=== PATIENT | male | born 1980 | race Caucasian/White ===

== ENCOUNTER 2017-02-15 08:21 | Emergency (ER) | payer SELFPAY ==
[2017-02-15 08:35] VITALS: BP 157/84; PULSE 82; TEMP 97.5; BMI 30.7
--- NOTE | 2017-02-15 09:06 | PDOC ---
History of Present Illness - General Chief Complaint: Injury Stated Complaint: HEAD INJURY Time Seen by Provider: 02/15/17 08:48 History Source: Patient Exam Limitations: No Limitations - History of Present Illness Initial Comments: 02/15/17 09:06 36-year-old male presents to the ED with complaints of head injury while at work today. 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 patient states had no LOC but states took him a few seconds to realize what happened followed by some blurriness to the right eye that disappeared within seconds. Patient currently has no complaints and has no medical history nor is he on anticoagulation therapy. Timing/Duration: reports: episodic Severity: Yes: mild Associated Symptoms: reports: denies symptoms. denies: vision changes ( resolved prior to arrival) Past History - Past Medical History Allergies/Adverse Reactions: Allergies Allergy/AdvReac Type Severity Reaction Status Date / Time No Known Allergies Allergy Verified 02/15/17 08:34 Home Medications: Ambulatory Orders NK [No Known Home Medication] 12/04/13 Other medical history: denies - Psycho/Social/Smoking Cessation Hx Suicidal Ideation: No Smoking History: Former smoker Have you smoked in the past 12 months: No If you are a former smoker, when did you quit?: 2014 Information on smoking cessation initiated: No Hx Alcohol Use: No Drug/Substance Use Hx: No Substance Use Type: None Patient Lives Alone: No Review of Systems - Review of Systems Able to Perform ROS?: Yes Constitutional: No: Symptoms Reported HEENTM: Yes: Eye Pain, Blurred Vision. No: Symptoms Reported, Tearing Respiratory: No: Symptoms reported ABD/GI: No: Symptoms Reported : No: Symptoms Reported Musculoskeletal: Yes: Symptoms Reported Integumentary: Yes: Lumps Neurological: No: Headache, Weakness, Dizziness *Physical Exam - Vital Signs Last Vital Signs Temp Pulse Resp BP Pulse Ox 97.5 F L 82 19 157/84 100 02/15/17 08:32 02/15/17 08:32 02/15/17 08:32 02/15/17 08:32 02/15/17 08:32 - Physical Exam General Appearance: Yes: Nourished, Appropriately Dressed. No: Apparent Distress HEENT: positive: EOMI, CRISTOPHER, TMs Normal Neck: negative: Tender, Trachea midline, Supple Integumentary: positive: Normal Color, Warm, Moist, Swelling (noted 2 cm hematoma to the right occipital region. Surrounding skin intact) ED Treatment Course - RADIOLOGY Radiology Studies Ordered: Category Date Time Status HEAD CT WITHOUT CONTRAST [CT] Stat CT Scan 02/15/17 08:59 Ordered Medical Decision Making - Medical Decision Making 02/15/17 09:20 Patient status post head injury while at work being struck by a wooden post of a bed. Patient had no LOC but had a brief period of blurry vision to the right eye associated with a blank stare that lasted approximately 5 seconds as per coworker. patient currently has no neural focal deficits or acute findings on exam. Will order a head CT secondary to injury location, and complains following the incident.. 02/15/17 10:[address] negative for acute findings. Patient be discharged home with recommendations to apply ice take Tylenol, and observe for any neurologic changes *DC/Admit/Observation/Transfer Diagnosis at time of Disposition: Hematoma of occipital surface of head Qualifiers: Encounter type: initial encounter Qualified Code(s): S00.83XA - Contusion of other part of head, initial encounter Closed head injury Qualifiers: Encounter type: initial encounter Qualified Code(s): S09.90XA - Unspecified injury of head, initial encounter - Discharge Dispostion Disposition: HOME Condition at time of disposition: Good - Patient Instructions Printed Discharge Instructions: DI for Closed Head Injury Additional Instructions: Please take Tylenol as needed every 6-8 hours for discomfort. Please apply ice to the affected areas much as you can tolerate for the next 72 hours. If you notice any increased headache, visual changes, dizziness, or nausea please return to the ED.
== END 2017-02-15 10:35 | disposition home or self-care (01) ==
LOC: JER 08:21
DX: S00.83XA Contusion of other part of head, initial encounter (principal); W22.8XXA Striking against or struck by other objects, initial encounter; V68.3XXA Unspecified occupant of heavy transport vehicle injured in noncollision transport accident in nontraffic accident, initial encounter; Y92.414 Local residential or business street as the place of occurrence of the external cause; Y93.H9 Activity, other involving exterior property and land maintenance, building and construction; Y99.0 Civilian activity done for income or pay
CPT/HCPCS: 70450-TC; 99281-25